=== PATIENT | female | born 1995 | race Caucasian/White ===

== ENCOUNTER → 2023-07-12 | Outpatient (CLI) | payer BC ==
[~2023-07-12] MED LIST: ALDACTONE50 MG PO; ALLEGRA 180MG180 MG PO; LOSEASONIQUE PO; MAGNESIUM GLYC100 MG PO; MULTIVITAMIN FO1 CAP PO; ROXICODONE 55 MG/TAB PO; SINGULAIR 110 MG/TAB PO; TOPROL XL 25MG25 MG PO; ZOFRAN 4MG T4 MG/TAB PO; ZOFRAN ODT4 MG PO
== END ==
LOC: COL.RAD 09:57
DX: R93.2 Abnormal findings on diagnostic imaging of liver and biliary tract (principal); R11.2 Nausea with vomiting, unspecified
CPT/HCPCS: A9537-JZ; A9575; J2805